=== PATIENT | male | born 1940 | race Caucasian/White ===

== ENCOUNTER → 2016-07-04 | Outpatient (CLI) | payer OTHER ==
[~2016-07-04] MED LIST: FERR325T5 PO; LTN/10 PO; MULTTAB45 PO
[2016-07-04 17:42] LABS: BASO % 0.8 %; BASO ABS # 0.03 K/uL (0-0.2); COMPLETE YES; EOS % 1.8 %; IG% 0.3 %; LYMPH % 30.3 %; LYMPH ABS # 1.19 K/uL (1.2-3.4); MEAN CELL VOLUME 90.3 fL (80-100); MEAN CORPUSCULAR HEMOGLOBIN 31.6 pg (25-34); MEAN PLATELET VOLUME 10.2 fL (7.4-10.4); MONO % 9.9 %; NEUT % 56.9 %; PLATELET COUNT 163 K/uL (130-400); RED BLOOD COUNT 4.65 M/uL (4.7-6.1); WHITE BLOOD COUNT 3.93 K/uL (4.8-10.8)
[2016-07-04 18:13] LABS: ALT/SGPT 28 U/L (12-78); AST/SGOT 16 U/L (15-37); BLOOD UREA NITROGEN 19 mg/dl (7-18); BUN/CREATININE RATIO 14.3 (10-20); CALCIUM 8.9 mg/dl (8.5-10.1); CARBON DIOXIDE 27 mmol/L (21-32); CHLORIDE 112 mmol/L (98-107); GLUCOSE 91 mg/dl (70-99); POTASSIUM 4.3 mmol/L (3.5-5.1); SODIUM 143 mmol/L (136-145)
[2016-07-04 18:23] LABS: ALB/GLOB RATIO 1.1 (0.9-2); ALKALINE PHOSPHATASE 66 U/L (45-117); THYROID STIMULATING HORMONE 0.125 uIu/ml (0.300-4.500)
== END | disposition home or self-care (01) ==
LOC: C.LAB1850 16:31
PROVIDERS: ATTEND Internal Medicine
DX: E53.8 Deficiency of other specified B group vitamins (principal); Z86.2 Personal history of diseases of the blood and blood-forming organs and certain disorders involving the immune mechanism; I10 Essential (primary) hypertension; E07.89 Other specified disorders of thyroid; M88.9 Osteitis deformans of unspecified bone

== ENCOUNTER → 2016-07-14 | Outpatient (CLI) | payer OTHER ==
--- NOTE | 2016-07-14 14:50 | DIAGNOSTIC IMAGING REPORT ---
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 DISCUSSION: No fractures are visualized. There is a femoral head neck bump, a nonspecific finding which has been reported in femoral acetabular impingement syndrome. There are sclerotic changes within the visualized portions of the proximal tibia IMPRESSION: 1. No acute fractures 2. Sclerotic changes within the partially visualized proximal tibia. Electronically signed by: Yousuf Duong M.D. 07/14/2016 2:49 PM Dictated Date/Time: 07/14/2016 2:47 PM
--- NOTE | 2016-07-14 14:51 | DIAGNOSTIC IMAGING REPORT ---
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 DISCUSSION: Heterogeneity bone mineralization anterior aspect tibial tubercles. This may be secondary to old trauma, penetrating change, and/or old postoperative change. No acute bony abnormalities identified. Remainder of the tibia and fibula appear unremarkable. There is no evidence for soft tissue swelling. IMPRESSION: 1. Heterogeneity of bone mineralization anterior aspect tibial tubercles. 2. This is nonspecific, and May be consistent with old trauma, Pagetoid change, and/or old postoperative change. 3. No acute process is appreciated. Electronically signed by: Eusebio Padgett M.D. 07/14/2016 2:49 PM Dictated Date/Time: 07/14/2016 2:47 PM
--- NOTE | 2016-07-14 14:52 | DIAGNOSTIC IMAGING REPORT ---
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 DISCUSSION: No fractures or subluxations are visualized. There are degenerative changes present within the knee with narrowing of the lateral joint compartment. There is a femoral head neck lump, a nonspecific finding which has been reported in femoral acetabular impingement syndrome. IMPRESSION: No fractures identified. No lytic or blastic lesions within the right femur are identified. Electronically signed by: Yousuf Duong M.D. 07/14/2016 2:51 PM Dictated Date/Time: 07/14/2016 2:50 PM
--- NOTE | 2016-07-14 14:54 | DIAGNOSTIC IMAGING REPORT ---
RIGHT TIBIA/FIBULA 2 VIEWS ROUTINE CLINICAL HISTORY: Paget's disease of the bone. COMPARISON: None FINDINGS: No acute fracture within the right tibia or fibula is identified. Mild cortical regularity is likely due to muscular insertion. No lytic or blastic lesion is identified within the right tibia or fibula. There is mild posterior calcaneal spurring. IMPRESSION: 1. No acute fracture or bony lesion identified within the right tibia or fibula. 2. Mild cortical irregularity of the proximal to mid shaft of the right tibia. While nonspecific, this is likely due to muscular insertion/origin. Electronically signed by: Sherman Lopez M.D. 07/14/2016 2:53 PM Dictated Date/Time: 07/14/2016 2:49 PM
--- NOTE | 2016-07-14 23:10 | DIAGNOSTIC IMAGING REPORT ---
WHOLE-BODY NUCLEAR BONE SCAN CLINICAL HISTORY: Paget's disease of bone. COMPARISON STUDY: CT scan of the chest, abdomen, and pelvis dated 04/27/2015. Radiographs of the the bilateral femora and the bilateral tibia and fibula dated 07/14/2016. Radiographs of left knee dated 01/13/2012. TECHNIQUE: Three hours following the IV administration of 26.1 mCi of technetium 99m MDP, whole body nuclear bone scan was performed in the anterior and posterior projections. FINDINGS: There is no abnormal osseous tracer deposition identified typical in appearance for bony metastatic disease. Typically degenerative uptake is identified the shoulders, sternoclavicular joints, knees, ankles, and first metatarsophalangeal joints. Low-level activity throughout the spine is also typical for degenerative change. Lesions in the proximal to mid portions of the left tibia demonstrate significant FDG activity. There is expected excreted activity within the renal collecting system and bladder. IMPRESSION: 1. Nonspecific lesion in the proximal to mid portions of the left tibia demonstrate significant accumulation of tracer. These lesions have been present dating back to 2011, and the appearance would be typical for Paget's disease of bone as clinically suspected. 2. No additional foci of abnormal tracer deposition are identified. 3. Foci of typically degenerative activity as above. Electronically signed by: Jarrett Lino M.D. 07/14/2016 11:08 PM Dictated Date/Time: 07/14/2016 5:26 PM
== END | disposition home or self-care (01) ==
LOC: C.NUCL 14:00
PROVIDERS: ATTEND Internal Medicine
DX: M88.9 Osteitis deformans of unspecified bone (principal)

== ENCOUNTER → 2016-07-29 | Outpatient (CLI) | payer OTHER ==
[2016-07-29 16:11] LABS: CALCIUM 8.9 mg/dl (8.5-10.1)
== END ==
LOC: C.LAB1850 14:44
PROVIDERS: ATTEND Internal Medicine Rheumatology
DX: M88.9 Osteitis deformans of unspecified bone (principal)

== ENCOUNTER → 2016-10-22 | Outpatient (CLI) | payer OTHER ==
[2016-10-22 14:25] VITALS: BP 134/81; PULSE 62; TEMP 36.5; O2SAT 97
--- NOTE | 2016-10-22 16:12 | Radiation Oncology Follow-Up ---
Radiation Oncology Follow-Up Date of Visit Oct 22, 2016. Reason For Visit Annual follow-up Radiation Completion Date 03/03/14 Diagnosis (1) Rectal carcinoma Status: Acute Onset Date: 11/22/2013 Permanent Comment: Rectal bleeding Status post colonoscopy and biopsy revealing moderately differentiated adenocarcinoma the rectum Metastatic workup revealing thyroid lesion in bilateral enhancing renal masses Rectal lesion is stage [id number] multidisciplinary clinic evaluation recommendation for treatment of the rectal carcinoma neoadjuvant therapy Status post completion of radiation and chemotherapy radiation completed 2013 received 5460 cGy to the rectum and 5040 C lymph nodes utilizing IMRT chemotherapy comprised of Xeloda Status post laparoscopic-assisted lower anterior resection in total these a rectal excision and coloanal anastomosis with splenic flexure mobilization 04/26 Stage [id number] Completion of adjuvant FOLFOX chemotherapy Status post hemorrhoidectomy and loop ileostomy reversal 01/01/2015 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 Patient preferred to be followed with surveillance Recheck CT scan of bilateral renal masses 04/27/2015, stable Patient declined surgery. Status post negative colonoscopy 08/29/2015 Last Edited By: Myra Collins on Oct 22, 2016 15:59 History of Present Illness Mr. Kiser is a 76-year-old [place] speaking male who understands and speaks no Korean. He is accompanied today by a family friend who is not a relative to act as proprietary trader. He is a patient of Dr. Pantera Huynh. The patient noted finding blood in his stool. A CBC was performed on 11/24/2013. His hemoglobin was 10.9 and hematocrit was 34.5. Because of these findings the patient was scheduled for a colonoscopy. This was performed on 11/22/[address] Felix Sue. He noted a rectal mass starting at the first rectal fold extending to the second rectal fold (approximately 8 cm). The tumor is 100% circumferential. Biopsies were performed. The biopsy confirmed a moderately differentiated adenocarcinoma. Case: [id number] S. 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 There was intact expression of all 4 proteins within the carcinoma. The immunohistochemistry findings are therefore not consistent with microsatellite instability. The patient was sent for additional staging procedures. On November [address] scan of the chest abdomen and pelvis. The CT scan of the chest showed no convincing evidence of metastatic disease within the chest. Mild cardiomegaly was appreciated. There was asymmetric enlargement of the left thyroid lobe with multiple thyroid nodules. There was diffuse heterogeneity of the visualized skeletal structures but no evidence of metastatic disease. CT scan of the abdomen and pelvis showed no evidence of liver metastasis. Evaluation of the kidneys however revealed numerous bilateral enhancing renal masses. A 5.7 x 5.0 cm mass was identified in the posterior upper pole the left kidney. There is a 3.7 x 3.9 cm enhancing mass arising exophytically from the anterior left upper pole. There is a 3.2 x 2.6 cm mass arising from the lower pole the left kidney. There are at least 3 additional small enhancing lesions in the left kidney. There is a 4.0 x 3.9 cm enhancing mass arising from the lower pole the right kidney. There are at least 4 additional subcentimeter enhancing nodules in the right kidney. There are also numerous bilateral renal cysts measuring up to 2.9 cm. In the bowel there is ill-defined rectal wall thickening and enhancement. There is mild haziness in the perirectal fat. There are small perirectal lymph nodes measuring up to 7 mm. There is no bowel obstruction. There is no evidence of bony metastasis. The renal masses are suspicious with renal cell carcinoma needing to be ruled out. The prostate gland is markedly enlarged and heterogeneous with recommended serum prostate-specific antigen levels to be drawn. On 12/01/2013 the patient was seen by Dr. Josue Beaulieu. He discussed the findings of the scans with the patient. The patient wished to be seen in [place] for second opinion and this was in the process of being set up. However in recent discussions with the proprietary trader today the patient's insurance was not accepted in [place] nor was it accepted in [place]. They are therefore in the process of trying to set up a second opinion in [place]. This referral is to see an oncologic urologist for evaluation and treatment recommendations of the multiple bilateral renal masses. The patient underwent a staging PET/CT scan on 12/05/2013. This showed a large nodule in the left lobe of the thyroid gland measuring up to 4 cm that is mildly FDG avid with a maximum SUV of 4.3. In the abdomen again seen is circumferential rectal wall thickening with marked FDG avidity in this region and a maximum SUV of 16.6. There is infiltration of the surrounding perirectal fat. Also seen are numerous bilateral renal masses. The largest lesion in the right kidney measures 5.8 x 5.2 cm. There is low level FDG activity within this lesion with a maximum SUV of 3.0. Activity within these lesions was difficult to differentiate from the expected renal/urinary activity. There is no FDG avid retroperitoneal lymphadenopathy and no additional FDG avid lesions identified in the abdomen or pelvis. There is no evidence of lytic or blastic bony lesions identified. GI multidisciplinary clinic evaluation recommendation for treatment of the rectal carcinoma neoadjuvant Status post completion of radiation and chemotherapy radiation completed 2013 received 5460 cGy to the rectum and 5040 C lymph nodes utilizing IMRT chemotherapy comprised of Xeloda Status post laparoscopic-assisted lower anterior resection in total these a rectal excision and coloanal anastomosis with splenic flexure mobilization 04/26 Stage [id number] Completion of adjuvant FOLFOX chemotherapy Status post hemorrhoidectomy and loop ileostomy reversal 01/01/2015 Malignant cells in hemorrhoidal tissue, patient declined surgery and opted for surveillance Status post CT revealing stable renal masses. Patient declined surgery. Status post negative colonoscopy 08/29/2015 Interim History The patient was seen and his grandson was used as an medical interpreter at his request. He's been doing well over this last year. He denies any change in bowel habits. There is been no rectal bleeding. He denies abdominal pain. His appetite is good and weight is stable. We discussed continued follow-up. He had been discharged from Dr. Beaulieu service. He is not followed by medical oncology. He had seen a colorectal surgeon and had a colonoscopy that was negative in August of last year. He currently has no follow-up appointment with a colorectal surgeon. Allergies Coded Allergies: No Known Allergies (Unverified , 11/14/15) Home Medications Scheduled Benazepril Hcl (Benazepril), 10 MG PO DAILY Multiple Vitamin (Multiple Vitamin), 1 TAB PO DAILY Review of Systems Gastrointestinal: Symptoms: WNL GI Comments: Heartburn at times Oral: Symptoms: No Problems Respiratory: Symptoms: WNL, SOB With Exertion Urinary: Symptoms: WNL Skin: Symptoms: No Problems Physical Exam Vital Signs Date Time Temp Pulse Resp B/P (MAP) Pulse Ox O2 Delivery O2 Flow Rate FiO2 10/22/16 14:25 36.5 62 18 134/81 97 Fatigue: None General Appearance: no apparent distress Eyes: normal inspection, EOMI ENT: normal ENT inspection, hearing grossly normal Neck: no adenopathy Respiratory/Chest: lungs clear, no respiratory distress, no accessory muscle use Cardiovascular: regular rate, rhythm, no gallop, no murmur Abdomen: non tender, soft, no organomegaly Anal / Rectum: Normal sphincter tone. Presence of internal hemorrhoids. With mild nodularity at the 4 to 6 o'clock position. No rectal bleeding. Extremities: no pedal edema Neurologic/Psychiatric: no motor/sensory deficits, alert, normal mood/affect Skin: warm/dry Laboratory Studies Test 07/29/16 14:49 Bone Specific Alkaline Phosphatase 9.5 mcg/L Calcium Level 8.9 mg/dl (8.5-10.1) Total Bilirubin 0.5 mg/dl (0.2-1) Direct Bilirubin 0.1 mg/dl (0-0.2) Aspartate Amino Transferase (AST) 16 U/L (15-37) Alanine Aminotransferase (ALT) 26 U/L (12-78) Alkaline Phosphatase 59 U/L (45-117) Total Protein 7.7 gm/dl (6.4-8.2) Albumin 4.1 gm/dl (3.4-5.0) 25-Hydroxy Vitamin D Total 33.4 ng/ml (30-100) Parathyroid Hormone (Intact) 66.1 pg/mL (11.1-79.5) Assessment & Plan Continue follow-up with his primary care physician. We reviewed information from [employer] electronic medical record. Previous phone messages were reviewed. The renal masses had been discussed with the patient by Dr. Billy. At that time he declined surgery. He is not currently interested in a recheck CT scan for the renal masses. We did discuss the findings of the previous malignant cells and the hemorrhoidal tissue. He had made a decision to be followed with surveillance. A colonoscopy had been recommended for September 2016. This has not been performed. He was in agreement to return to the colorectal surgeon for a recheck colonoscopy. We asked him to return to our office in 1 year. Total Time In Follow-Up I spent 25 minutes begin to the patient and his grandson. I spent 20 minutes reviewing information in completing this note. AK Copy To RV. De La Rosa MD; Cyn García M.D.
== END | disposition home or self-care (01) ==
LOC: C.ONC 14:08
PROVIDERS: ATTEND Physician Assistant Medical
DX: Z08 Encounter for follow-up examination after completed treatment for malignant neoplasm (principal); Z92.3 Personal history of irradiation; Z85.048 Personal history of other malignant neoplasm of rectum, rectosigmoid junction, and anus

== ENCOUNTER → 2017-06-24 | Outpatient (CLI) | payer OTHER ==
[~2017-06-24] MED LIST changes: -FERR325T5 PO
[2017-06-24 14:31] LABS: BASO % 0.2 %; BASO ABS # 0.01 K/uL (0-0.2); EOS % 1.8 %; EOS ABS # 0.08 K/uL (0-0.5); HEMATOCRIT 41.8 % (42-52); HEMOGLOBIN 14.6 g/dL (14.0-18.0); IG# 0.01 K/uL (0.00-0.02); LYMPH % 25.4 %; LYMPH ABS # 1.15 K/uL (1.2-3.4); MEAN CELL VOLUME 88.9 fL (80-100); MEAN CORPUSCULAR HEMOGLOBIN 31.1 pg (25-34); MEAN CORPUSCULAR HGB CONC 34.9 g/dl (32-36); MEAN PLATELET VOLUME 10.3 fL (7.4-10.4); MONO % 9.1 %; MONO ABS # 0.41 K/uL (0.11-0.59); NEUT % 63.3 %; NEUT ABS # 2.86 K/uL (1.4-6.5); PLATELET COUNT 165 K/uL (130-400); RED CELL DISTRIBUTION WIDTH CV 12.8 % (11.5-14.5); RED CELL DISTRIBUTION WIDTH SD 41.1 fL (36.4-46.3); WHITE BLOOD COUNT 4.52 K/uL (4.8-10.8)
[2017-06-24 15:02] LABS: ALBUMIN 4.1 gm/dl (3.4-5.0); ALT/SGPT 23 U/L (12-78); AST/SGOT 17 U/L (15-37); BLOOD UREA NITROGEN 25 mg/dl (7-18); CALCIUM 9.2 mg/dl (8.5-10.1); CARBON DIOXIDE 23 mmol/L (21-32); CREATININE 1.42 mg/dl (0.60-1.40); GLUCOSE 85 mg/dl (70-99); POTASSIUM 4.4 mmol/L (3.5-5.1); SODIUM 140 mmol/L (136-145)
[2017-06-24 15:05] LABS: CARCINOEMBRYONIC ANTIGEN 1.1 ng/ml (0-2.5)
[2017-06-24 15:13] LABS: ALKALINE PHOSPHATASE 62 U/L (45-117); TOTAL PROTEIN 8.2 gm/dl (6.4-8.2)
== END | disposition home or self-care (01) ==
LOC: C.LAB1850 13:19
PROVIDERS: ATTEND Internal Medicine
DX: R94.6 Abnormal results of thyroid function studies (principal); Z86.2 Personal history of diseases of the blood and blood-forming organs and certain disorders involving the immune mechanism; I10 Essential (primary) hypertension; C20 Malignant neoplasm of rectum; M88.9 Osteitis deformans of unspecified bone; E53.8 Deficiency of other specified B group vitamins

== ENCOUNTER → 2017-08-06 | Outpatient (CLI) | payer OTHER ==
[2017-08-06 17:52] LABS: ALBUMIN 3.7 gm/dl (3.4-5.0); ALKALINE PHOSPHATASE 65 U/L (45-117); ALT/SGPT 25 U/L (12-78); AST/SGOT 17 U/L (15-37); BLOOD UREA NITROGEN 22 mg/dl (7-18); CALCIUM 8.7 mg/dl (8.5-10.1); CARBON DIOXIDE 22 mmol/L (21-32); CREATININE 1.29 mg/dl (0.60-1.40); GLUCOSE 91 mg/dl (70-99); POTASSIUM 4.1 mmol/L (3.5-5.1); SODIUM 142 mmol/L (136-145); TOTAL PROTEIN 7.6 gm/dl (6.4-8.2)
== END | disposition home or self-care (01) ==
LOC: C.LAB1850 16:41
PROVIDERS: ATTEND Internal Medicine
DX: N28.9 Disorder of kidney and ureter, unspecified (principal)

== ENCOUNTER → 2017-10-22 | Outpatient (CLI) | payer OTHER ==
[~2017-10-22] MED LIST changes: +AMLO10TA3 PO; +ENAL10TA88 PO; +RANI150T85 PO
[2017-10-22 13:44] VITALS: BP 117/69; PULSE 63; TEMP 36.6; O2SAT 94
--- NOTE | 2017-10-22 15:22 | Radiation Oncology Follow-Up ---
Radiation Oncology Follow-Up Date of Visit Oct 22, 2017. Reason For Visit Annual follow-up Radiation Completion Date 03/03/14 Diagnosis (1) Rectal carcinoma Status: Acute Onset Date: 11/22/2013 Permanent Comment: Rectal bleeding Status post colonoscopy and biopsy revealing moderately differentiated adenocarcinoma the rectum Metastatic workup revealing thyroid lesion in bilateral enhancing renal masses Rectal lesion is stage [id number] GI multidisciplinary clinic evaluation recommendation for treatment of the rectal carcinoma neoadjuvant therapy Status post completion of radiation and chemotherapy radiation completed 2013 received 5460 cGy to the rectum and 5040 C lymph nodes utilizing IMRT chemotherapy comprised of Xeloda Status post laparoscopic-assisted lower anterior resection in total these a rectal excision and coloanal anastomosis with splenic flexure mobilization 04/26 Stage [id number] Completion of adjuvant FOLFOX chemotherapy Status post hemorrhoidectomy and loop ileostomy reversal 01/01/2015 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 Patient preferred to be followed with surveillance Recheck CT scan of bilateral renal masses 04/27/2015, stable Patient declined surgery. Status post negative colonoscopy 08/29/2015 Status post negative colonoscopy 12/2016 ( Colonoscopy for 2019 ) Continues to decline follow up on renal masses (10-22-2017) Last Edited By: Myra Collins on Oct 22, 2017 15:14 Interim History Patient was seen and evaluated with his grandson acting as tree cutter. He has been doing well over this past year. Denies any changes in bowel habits. He denies any rectal pain. He denies abdominal pain. His appetite is good and weight is stable. He denies any rectal bleeding. He has been discharged from medical oncology. He is followed closely with his primary care provider. We once again touched base on the history of renal masses. He declines any further workup of the renal masses. Allergies Coded Allergies: No Known Allergies (Unverified , 11/14/15) Home Medications Scheduled Amlodipine (Norvasc), 10 MG PO DAILY Enalapril (Vasotec), 10 MG PO DAILY Multiple Vitamin (Multiple Vitamin), 1 TAB PO DAILY Ranitidine (Zantac), 1 TAB PO BID Review of Systems Gastrointestinal: Symptoms: WNL GI Comments: Heartburn at times Oral: Symptoms: No Problems Respiratory: Symptoms: WNL Urinary: Symptoms: WNL Skin: Symptoms: No Problems Physical Exam Vital Signs Date Time Temp Pulse Resp B/P (MAP) Pulse Ox O2 Delivery O2 Flow Rate FiO2 10/22/17 13:44 36.6 63 16 117/69 94 Fatigue: None General Appearance: no apparent distress Eyes: normal inspection, EOMI ENT: normal ENT inspection, hearing grossly normal Neck: no adenopathy, thyroid normal Respiratory/Chest: lungs clear, no respiratory distress, no accessory muscle use Cardiovascular: regular rate, rhythm, no gallop, no murmur Abdomen: non tender, soft, no organomegaly Anal / Rectum: Normal sphincter tone. No rectal masses no rectal bleeding. Internal hemorrhoids. Extremities: no pedal edema Neurologic/Psychiatric: no motor/sensory deficits, alert, normal mood/affect Lymphatic: no adenopathy Pain Management Patient Reports Pain: No Initial Pain Intensity: 0.0 Pain Management Plan He denies pain therefore requires no pain management. Laboratory Laboratory Results: were reviewed Pathology Pathology Results: not applicable Imaging Imaging Studies: not applicable Assessment & Plan Plan: Continue regular follow-up with his primary care provider. We discussed the scheduling of follow-up scoping's. After his last scoping in 2016 it was recommended that he have his next scoping in 2019. He was discharged from medical oncology. He declines any further evaluation of renal masses. We asked him to return to our office in 1 year. Recall may be given if there are any questions or concerns in the interim. Total Time In Follow-Up I spent 20 minutes speaking to the patient in performing examination. I spent 15 minutes reviewing information and completing this note. Copy To RV. De La Rosa MD; Cyn García M.D.
== END ==
LOC: C.ONC 13:38
PROVIDERS: ATTEND Physician Assistant Medical
DX: Z08 Encounter for follow-up examination after completed treatment for malignant neoplasm (principal); Z92.3 Personal history of irradiation; Z85.048 Personal history of other malignant neoplasm of rectum, rectosigmoid junction, and anus